=== PATIENT | female | born 1965 | race Caucasian/White ===

== ENCOUNTER 2020-12-19 12:48 | Emergency (ER) | payer OTHER, SELFPAY ==
[2020-12-19 13:00] VITALS: BP 136/60; PULSE 74; RESP 14; TEMP 37.1; O2SAT 100
--- NOTE | 2020-12-19 13:08 | ED.EAR ---
HPI - Ear Problem General Chief complaint: Ear Stated complaint: Ear Pain Time Seen by Provider: 12/19/20 13:08 Source: patient Mode of arrival: ambulatory Limitations: no limitations History of Present Illness HPI Narrative: Joan Cervantes is a 55 y female with a PMH comes to [facility] with R ear pain for 3-4 days, has postnasal drip, not taking any a allergy or antihistamine currently, using [facility] eardrops in her right ear but states her left ear is beginning to hurt not too. Rates pain on right as 7 out of 10 has facial pressure and sinus pressure, R ear is 2/10 Related Data Allergies Allergy/AdvReac Type Severity Reaction Status Date / Time Sulfa (Sulfonamide Allergy Itching Verified 12/19/20 13:08 Antibiotics) Review of Systems Review of Systems: Narrative: CONSTITUTIONAL: Denies fever, chills, sweats. EYES: Denies visual changes, redness, discharge. ENT: Denies rhinorrhea, congestion, sore throat, bilateral otalgia. Sinus pressure CARDIOVASCULAR: Denies chest pain, palpitations, edema. RESPIRATORY: Denies dyspnea, wheezing, cough GASTROINTESTINAL: Denies abdominal pain, nausea, vomiting, diarrhea. GENITOURINARY: Denies dysuria, hematuria, abnormal discharge SKIN: Denies rash or itching. NEUROLOGIC: Denies numbness, or focal weakness. PSYCHIATRIC: Denies anxiety or depression. [facility] Past Medical History Medical History Diabetes Social History Social History (Updated 12/19/20 @ 13:20 by Angle Cerda CNP) Smoking packs per day: 1 Smoking cigarettes per day: 20.0 Smoking status: Current every day smoker Tobacco type: cigarettes Alcohol intake: current Comments At time of signature, I agree with nursing past medical, surgical, social and family history. There is no relevant family history pertinent to the presenting complaint. Exam Narrative: Exam Narrative: GENERAL: This is a well-nourished, well-developed patient, in mild distress. HEAD: normocephalic, atraumatic. EYES: Sclera clear/white. Vision is grossly intact. EARS: External ears normal, auditory canals erythema on R, normal canal on L and without drainage, TMs normal without perforation. Hearing grossly intact. NOSE: External nose normal without nasal discharge, nares without redness, some rhinorrhea. THROAT: Mucous membranes moist, posterior pharynx erythema NECK: Neck supple, tender, enlarged lymph nodes CARDIOVASCULAR: Regular rate and rhythm without murmurs, gallops, or rubs. RESPIRATORY: Clear to auscultation. Breath sounds equal bilaterally. No wheezes, rales, or rhonchi. GASTROINTESTINAL: Abdomen soft, SKIN: warm, intact with no suspicious lesions or rash, good texture and turgor. NEURO: awake, alert, and oriented to person, place and time. There were no obvious focal neurologic abnormalities. Steady gait EXTREMITIES: Normal range of motion. BACK: Nontender without deformity Course Course Emergency Course: [facility] of right ear pain and pain under chin especially on right Started on prednisone, Zyrtec, Ciprodex eardrops Vital Signs Vital signs: Vital Signs Temperature 98.8 F 12/19/20 13:00 Pulse Rate 74 12/19/20 13:00 Respiratory Rate 14 12/19/20 13:00 Blood Pressure 136/60 12/19/20 13:00 Pulse Oximetry 100 12/19/20 13:00 Temperature 98.8 F 12/19/20 13:00 Pulse Rate 74 12/19/20 13:00 Respiratory Rate 14 12/19/20 13:00 Blood Pressure 136/60 12/19/20 13:00 Pulse Oximetry 100 12/19/20 13:00 Medical Decision Making Differential Diagnosis Differential Diagnosis: Otitis media versus otitis externa versus sinusitis versus pharyngitis Vital Signs Vital Signs: Vital Signs Temperature 98.8 F 12/19/20 13:00 Pulse Rate 74 12/19/20 13:00 Respiratory Rate 14 12/19/20 13:00 Blood Pressure 136/60 12/19/20 13:00 Pulse Oximetry 100 12/19/20 13:00 Temperature 98.8 F
== END 2020-12-19 13:30 | disposition home or self-care (01) ==
PROVIDERS: Emergency Provider Nurse Practitioner; PCP Internal Medicine
DX: H92.01 Otalgia, right ear (principal); J01.10 Acute frontal sinusitis, unspecified; F17.210 Nicotine dependence, cigarettes, uncomplicated; E11.9 Type 2 diabetes mellitus without complications
CPT/HCPCS: 99213; G0463